=== PATIENT | male | born 1980 | race Caucasian/White ===

== ENCOUNTER 2016-11-05 10:14 | Emergency (ER) | payer SELFPAY ==
[~2016-11-05] VITALS: Ht 187.9 cm; Wt 72.6 kg
[~2016-11-05 10:14] MED LIST: CYCLOBENZAPRINE10 MG PO; Motrin,Rufen800 MG PO; NAPROSYN500 MG PO
[2016-11-05 10:41] LABS: BASO # 0.1 10*3/uL (0.0-0.1); BASO % 0.8 % (0.0-1.0); EOS # 0.1 10*3/uL (0.0-0.4); EOS % 1.3 % (1.0-4.0); HEMATOCRIT 40.5 % (42.0-52.0); HEMOGLOBIN 13.2 g/dl (14.0-18.0); LYMPH # 2.9 10*3/uL (1.3-4.4); LYMPH % 33.9 % (27.0-41.0); MEAN CELL VOLUME 92.3 fl (80.0-94.0); MEAN CORPUSCULAR HGB 30.1 pg (27.0-31.0); MEAN CORPUSCULAR HGB CONC 32.6 g/dl (33.0-37.0); MEAN PLATELET VOLUME 10.4 fl (9.6-12.3); MONO # 0.8 10*3/uL (0.1-1.0); MONO % 9.7 % (3.0-9.0); NEUT # 4.6 10*3/uL (2.3-7.9); NEUT % 54.1 % (47.0-73.0); PLATELET COUNT AUTOMATED 203 10*3/uL (130-400); RED BLOOD COUNT 4.39 10*6/uL (4.50-5.90); RED CELL DISTRI WIDTH 14.2 % (0-14.5); WHITE BLOOD COUNT 8.4 10*3/uL (4.8-10.8)
[2016-11-05 10:50] LABS: INTERNATIONAL NORM RATIO 1.1 (2.0-3.5); PROTHROMBIN TIME 11.4 SECONDS (9.0-12.4)
[2016-11-05 10:58] LABS: ALBUMIN 3.8 gm/dl (3.1-4.5); ALKALINE PHOSPHATASE 59 U/L (45-117); BILIRUBIN, TOTAL 0.4 mg/dl (0.2-1.0); BUN 10 mg/dl (7-24); CARBON DIOXIDE 25 mmol/L (21-32); CHLORIDE 109 mmol/L (98-107); CKMB 0.9 ng/ml (0.5-3.6); CPK 290 U/L (39-308); EST GLOM FILT AFRICAN AMERICAN > 60 ml/min; GLUCOSE 95 mg/dL (65-99); POTASSIUM 3.1 mmol/L (3.5-5.1); SGOT/AST 20 IU/L (3-35); SGPT/ALT 18 U/L (12-78); SODIUM 144 mmol/L (136-145); TOTAL PROTEIN 7.2 gm/dL (6.4-8.2); TROPONIN I 0.015 ng/ml (<0.045)
[2016-11-05 10:59] LABS: C-REACTIVE PROTEIN < 0.29 MG/DL (0-0.3)
== END 2016-11-05 14:25 | disposition home or self-care (01) ==
LOC: ED 10:14
PROVIDERS: Emergency Medicine
DX: F11.10 Opioid abuse, uncomplicated (principal); E87.6 Hypokalemia; R61 Generalized hyperhidrosis; R53.1 Weakness; R11.0 Nausea; R42 Dizziness and giddiness; H53.8 Other visual disturbances

== ENCOUNTER → 2018-02-10 | Outpatient (CLI) | payer OTHER | END | disposition home or self-care (01) | LOC: CARD 02-08 10:30 | DX: R00.2 Palpitations (principal) ==

== ENCOUNTER → 2018-02-22 | Outpatient (CLI) | payer OTHER ==
[2018-02-23 07:06] LABS: THYROID PEROXIDASE (TPO) AB 10 IU/mL (0-34)
[2018-02-23 12:07] LABS: THYROGLOBULIN ANTIBODY <1.0 IU/mL (0.0-0.9)
[2018-02-23 15:08] LABS: THYROTROPIN RECEPTOR AB <0.50 IU/L (0.00-1.75)
== END | disposition home or self-care (01) ==
LOC: LAB 11:35
PROVIDERS: Internal Medicine
DX: E05.90 Thyrotoxicosis, unspecified without thyrotoxic crisis or storm (principal)

== ENCOUNTER → 2020-01-23 | Outpatient (CLI) | payer OTHER ==
[~2020-01-23] MED LIST changes: +ATARAX,VISTARIL50 MG PO; +DICYCLOMINE HCL20 MG PO; +METHOCARBAMOL750 M1 PO; +MOTRIN 600 MG E4 TAB PO; +NATURE'S BLEND F1 MG PO; +ROPINIROLE HYD0.5 MG PO; +VITAMIN B-1100 M1 PO; +ZOFRAN 4 MG ED2 TAB PO
== END | disposition home or self-care (01) ==
LOC: CARD 01-21 09:00
PROVIDERS: ATTEND Internal Medicine
DX: R00.2 Palpitations (principal)

== ENCOUNTER → 2021-09-15 | Outpatient (CLI) | payer OTHER ==
[2021-09-15 15:41] LABS: BILIRUBIN Negative (Negative); BLOOD Negative (Negative); CLARITY Clear (Clear); COLOR Yellow (Yellow); GLUCOSE Negative (Negative); KETONE Negative (Negative); LEUKO ESTERASE Negative (Negative); NITRITE Negative (Negative); PH 6.5 (4.5-8.0); SPECIFIC GRAVITY 1.015 (1.001-1.030); UROBILINOGEN 0.2 E.U./dl (0.0-1.0)
[2021-09-15 15:56] LABS: BACTERIA TRACE; WBC 0-2 wbc/hpf (0-5)
[2021-09-16 06:08] LABS: AFP TUMOR MARKER 2.7 ng/mL (0.0-6.9)
[2021-09-16 09:09] LABS: RHEUMATOID FACTOR <10.0 IU/mL (<14.0)
[2021-09-16 12:08] LABS: HEPATITIS B SURFACE AG Negative (Negative)
[2021-09-16 21:06] LABS: HEPATITIS C QNT HCV Not Detected IU/mL (.)
== END | disposition home or self-care (01) ==
LOC: US 08-31 07:30 → LAB 14:04
PROVIDERS: ATTEND Internal Medicine
DX: K82.8 Other specified diseases of gallbladder (principal); R76.8 Other specified abnormal immunological findings in serum